=== PATIENT | female | born 1995 | race Caucasian/White ===

== ENCOUNTER 2022-01-25 10:52 | Inpatient (IN) ==
[2022-01-25] MEDS ORDERED: OXYTOCIN 30 UNITS/500 ML BAG IV PRN (11:43)
[2022-01-25 12:35] LABS: Hematocrit (blood only) 42.5 % (37-47); Hemoglobin 14.8 g/dL (12.0-16.0); Mean Corpuscular Hemoglobin 31.3 pg (25-34); Mean Corpuscular Hgb Conc 34.8 g/dL (32-36); Mean Corpuscular Volume 89.9 fL (80-100); Mean Platelet Volume 11.9 fL (7.4-10.4); Platelet Count 179 K/uL (130-400); RDW Standard Deviation 46.6 fL (36.4-46.3); Red Blood Count 4.73 M/uL (4.2-5.4); White Blood Count 10.16 K/uL (4.8-10.8)
--- NOTE | 2022-01-25 12:36 | Anesthesiology Consultation ---
Date of Service January 25, 2022 Assessment & Plan Chart Review Chart Review: Acceptable Risk for Surgery and Patient NOT seen in Pre Admission Testing Consults Requested none ASA ASA2 Proposed Anesthesia Anesthesia Type: Labor Epidural and CSE History Height/Weight Height: 5 ft 5 in Weight: 86.183 kg Allergies Allergy/AdvReac Type Severity Reaction Status Date / Time No Known Allergies Allergy Verified 01/25/22 12:14 Medications Home Medications Medication Instructions Recorded Confirmed Last Taken prenat.vits,rodney,nic-[id number]-[id number] 1 tab PO DAILY 06/07/21 01/25/22 Unknown Past Medical History Medical History 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 Varicella vaccination Exercise / Class Metabolic Activity II 4-5 Yardwork/Stairs/Walk up hill Past Family History Family History Grandfather Diabetes Hypertension Stroke Denies family history of Ovarian cancer Prostate cancer Breast cancer Lung cancer Colorectal cancer Past Surgical History Surgical History No pertinent past surgical history Past Anesthesia History No Hx of Anesthesia Complications and No Family Hx of Anesthesia Complications History of PONV No Hx of PONV and No Hx of Motion Sickness Social History Smoking Status: Never smoker Hx Alcohol Use: No Hx Substance Use: No substance use type: does not use Physical Exam Vital Signs Last Vital Signs Temp 36.9 C 01/25/22 11:11 Pulse 102 H 01/25/22 11:18 Resp 20 01/25/22 11:11 BP 126/84 01/25/22 11:18
--- NOTE | 2022-01-25 13:15 | History & Physical Report ---
Date of Service January 25, 2022 Assessment & Plan (1) PROM (premature rupture of membranes): (2) Velamentous insertion of umbilical cord: Plan: 26 y/o G1 at 40w1d w/ spontaneous rupture of membranes VSS Fetus cat 1 SROM - SVE unchanged from office based on RN's exam, pt will ambulate and re- examine. Consider pit if no progression GBS neg Epidural prn History of Present Illness Chief Complaint: LOF Primary Care Provider: Bessie Rhodes MD 26 y/o G1 at 40 1/7 wga w/ SUZE 01/24 by LMP who presents w/ c/o LOF that began around 10AM. +FM and occ contractions, but nothing pain. Denies VB. 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 Varicella vaccination Surgical History No pertinent past surgical history Family History Grandfather Diabetes Hypertension Stroke Denies family history of Ovarian cancer Prostate cancer Breast cancer Lung cancer Colorectal cancer Social History Smoking Status: Never smoker Second Hand Exposure: No; Hx Alcohol Use: No Hx Substance Use: No Preferred Language: Honduran Outreach Associate Required: No Beliefs That Will Affect Care: None marital status: marital status details: Jadyn Stafford (30) [phone] Current Living Situation: Family Current Living Situation Comment: lives with in laws current occupational status: employed current occupation: [employer] Other Information That Helps Us Care for You: No Feels Safe at Home: Yes Safety Concerns: Feels Safe At This Time caffeine: Yes (coffee) Dental Care, Regularly: Yes Physical Activity Frequency: Does not Exercise Seatbelt Use: always Sunscreen Use: No Assistive Devices: None Physical Exam Genitourinary: OB Exam Abdomen: + vertex and + estimated weight (7) OB Exam Monitor Tracing: + external FHT monitor used, + external uterine monitor used (rare ctx) and + category I (140/mod/+accel/-decel) /-1 by nursing Results & Data ([place]) Vital Signs (Past 12 Hours) Vital Signs Temp Pulse Resp BP 01/25/22 11:18 102 H 126/84 01/25/22 11:11 98.4 F 102 H 20 126/84 Laboratory Results OB Labs: Blood Type O Positive 06/14/21 Antibody Screen NEGATIVE 06/14/21 Hemoglobin 13.1 g/dL (12.0-16.0) 11/04/21 Hematocrit 39.2 % (37-47) 11/04/21 Mean Corpuscular Volume 89.8 fL (80-100) 06/14/21 Platelet Count 210 K/uL (130-400) 06/14/21 Rubella IgG Antibody Immune (Immune) 06/14/21 Rapid Plasma Reagin Nonreactive (Nonreactive) 06/14/21 Hepatitis B Surface Antigen Neg (Neg) 06/14/21 HIV (1&2) Ab and P24 Ag, 4th Gener Neg (Neg) 06/14/21 Glucose 1 Hour 50 gm Load 125 mg/dl (70-130) 11/04/21 Maternal Serum Alpha Fetoprotein 46.5 ng/mL 08/12/21 OB Optional Labs: Chlamydia trachomatis RNA NOT DETECTED (NOT DETECTED) 06/14/21 Neisseria gonorrhoeae RNA NOT DETECTED (NOT DETECTED) 06/14/21 Alpha Fetoprotein Triple Screen SEE NOTE 08/12/21 Labs Reviewed: low risk cfdna neg cf/sma GBS neg Diagnostic Findings 01/01 EFW 70%, post plac Code Status & VTE Plan VTE Prophylaxis Plan VTE Prophylaxis will be ordered: No Coding Level of Care Code None Diagnoses Velamentous insertion of umbilical cord O43.129 PROM (premature rupture of membranes) O42.90
[2022-01-25] MEDS: LACTATED RINGER'S 1,000 ML IV PRN ×3 (14:52→23:00)
[2022-01-25] MEDS ORDERED: AQUAPHOR EXT PRN (14:56)
--- NOTE | 2022-01-25 14:56 | Labor Progress Brief Note ---
Date of Service January 25, 2022 Subjective Comfortable, some ctx Assessment & Plan (1) PROM (premature rupture of membranes): (2) Velamentous insertion of umbilical cord: Plan: 26 y/o G1 at 40w1d w/ spontaneous rupture of membranes VSS Fetus cat 1 SROM - Forebag palpated and ruptured, will have nursing recheck in 1 hr and if still unchanged start pit. Had decel following forebag rupture but recovered well GBS neg Epidural prn Physical Exam Genitourinary: Manual OB Exam: + cervical dilation 4 cm, + cervical effacement 90%, + station -1 and + amniotic fluid (AROM forebag) OB Exam Monitor Tracing: + external FHT monitor used, + external uterine monitor used (rare ctx) and + category I (130/mod/+accel/-decel) Results & Data ([facility]) Vital Signs (Past 12 Hours) Vital Signs Temp Pulse Resp BP 01/25/22 11:18 102 H 126/84 01/25/22 11:11 98.4 F 102 H 20 126/84 Coding Level of Care Code None Diagnoses PROM (premature rupture of membranes) O42.90 Velamentous insertion of umbilical cord O43.129
[2022-01-25] MEDS ORDERED: PETROLATUM 16 OZ JAR EXT PRN (15:10)
[2022-01-25] MEDS ORDERED: EUCERIN CR 120 GM JAR EXT PRN (15:13)
[2022-01-25] MEDS: OXYTOCIN 30 UNITS/500 ML BAG IV PRN (16:33)
[2022-01-25] MEDS ORDERED: ePHEDrine sulfate 50 MG/ML AMP ONE (18:01)
[2022-01-25] MEDS ORDERED: SODIUM CHLORIDE 0.9% INJ 10 ML VIAL ONE (18:02)
[2022-01-25] MEDS ORDERED: fentaNYL 2MCG/ML ROPIVACAINE 1.25MG/ML 100 ML BAG EPI ONE (18:02)
[2022-01-25] MEDS ORDERED: fentaNYL citrate 100 MCG/2 ML VIAL ONE (18:02)
[2022-01-25] MEDS ORDERED: BUPIVACAINE 0.25% 30 ML VIAL ONE (18:02)
[2022-01-25] MEDS ORDERED: fentaNYL 2MCG/ML ROPIVACAINE 1.25MG/ML 100 ML BAG EPI PRN (18:41)
[2022-01-25] MEDS ORDERED: NALOXONE HCL 0.4 MG/1 ML VIAL/CARP IV PRN (18:41)
[2022-01-25] MEDS ORDERED: ePHEDrine sulfate 50 MG/ML AMP IV PRN (18:41)
[2022-01-25] MEDS ORDERED: NALBUPHINE HCL INJ 10 MG/ML AMP IV PRN (18:41)
[2022-01-25] MEDS ORDERED: ONDANSETRON INJ 2 MG/ML 2 ML VIAL IV PRN (18:41)
[2022-01-25] MEDS ORDERED: NALOXONE HCL 1 MG in SODIUM CHLORIDE 0.9% 1000ML 1,000 ML IV PRN (18:41)
[2022-01-25] MEDS ORDERED: diphenhydrAMINE 50 MG/ML VIAL IV PRN (18:41)
--- NOTE | 2022-01-25 18:43 | Anesthesiology Consultation ---
Date of Service January 25, 2022 Assessment & Plan Chart Review Chart Review: Patient NOT seen in Pre Admission Testing and Acceptable Risk for Labor Epidural Consults Requested none ASA ASA2 Proposed Anesthesia Anesthesia Type: Labor Epidural and CSE Risk / Benefits Reviewed With: PT / POA / Parent / Guardian, Accepts Plan and Informed Consent Obtained History Height/Weight Height: 5 ft 5 in Weight: 86.183 kg Allergies Allergy/AdvReac Type Severity Reaction Status Date / Time No Known Allergies Allergy Verified 01/25/22 12:14 Medications Home Medications Medication Instructions Recorded Confirmed Last Taken prenat.vits,rodney,xlo-jzex-[id number] 1 tab PO DAILY 06/07/21 01/25/22 Unknown Active Medications Generic Name Dose Route Start Last Admin Trade Name Freq PRN Reason Stop Dose Admin Lactated Ringer's 1,000 mls @ 125 mls/hr 01/25/22 11:43 01/25/22 18:12 Lr IV 01/27/22 11:42 999 mls/hr .Q8H PRN Administration L&D Protocol Protocol Oxytocin 30 units in 500 mls @ 6 mls/hr 01/25/22 14:51 01/25/22 17:30 Pitocin IV 01/27/22 14:50 0.36 units/hr .Q24H PRN 6 mls/hr Labor Induction/Augmentation Titration Protocol 0.36 UNITS/HR Multi-Ingredient Cream 1 appln 01/25/22 15:13 01/25/22 17:03 Eucerin Cr 120 Gm Jar EXT 02/24/22 15:12 1 appln Q2H PRN Administration Rash NPO Date Last Intake of Fluids: 01/25/22 Time Last Intake of Fluids: 16:00 Date Last Intake of Solids: 01/25/22 Time Last Intake of Solids: 09:00 Past Medical History Medical History 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 Varicella vaccination Exercise / Class Metabolic Activity II 4-5 Yardwork/Stairs/Walk up hill Past Family History Family History Grandfather Diabetes Hypertension Stroke Denies family history of Ovarian cancer Prostate cancer Breast cancer Lung cancer Colorectal cancer Past Surgical History Surgical History No pertinent past surgical history Past Anesthesia History No Hx of Anesthesia Complications and No Family Hx of Anesthesia Complications History of PONV No Hx of PONV and No Hx of Motion Sickness Social History Smoking Status: Never smoker Hx Alcohol Use: No Hx Substance Use: No substance use type: does not use Review of Systems no chest pain or sob Physical Exam Vital Signs Last Vital Signs Temp 36.5 C 01/25/22 17:58 Pulse 77 01/25/22 18:39 Resp 20 01/25/22 17:58 BP 113/68 01/25/22 17:32 Pulse Ox 99 01/25/22 18:39 ENMT Mouth: no TMJ abnormality Thyromental Distance: > or= 3.5 Finger Breadths Mallampati Class: II Neck normal visual inspection Respiratory normal respiratory effort Auscultation: lungs clear to auscultation bilaterally Cardiovascular Rate/Rhythm: regular rate and regular rhythm Musculoskeletal Spine: normal cervical ROM Neurologic moves all extremities Psychiatric Orientation: alert and oriented x 3 Testing Laboratory Results 01/25/22 12:02
--- NOTE | 2022-01-25 19:35 | Labor Progress Brief Note ---
Date of Service January 25, 2022 Subjective Comfortable w/ epidural Assessment & Plan (1) PROM (premature rupture of membranes): (2) Velamentous insertion of umbilical cord: Plan: 26 y/o G1 at 40w1d w/ spontaneous rupture of membranes VSS Fetus cat 1 SROM - pit at 8, continue augmentation GBS neg Epidural in place Admission and Anticipated Discharge Date Admission Date: January 25, 2022 Physical Exam Genitourinary: Manual OB Exam: + cervical dilation (5-6), + cervical effacement 90% and + station -1 OB Exam Monitor Tracing: + external FHT monitor used, + external uterine monitor used (q4) and + category I (140/ mod/+accel/-decel) Results & Data ([facility]) Vital Signs (Past 12 Hours) Vital Signs Temp Pulse Resp BP Pulse Ox 01/25/22 19:29 66 104/58 L 97 01/25/22 19:24 82 96 01/25/22 19:21 70 110/55 L 01/25/22 19:20 97.7 F 20 01/25/22 19:19 90 98 01/25/22 19:14 74 107/61 98 01/25/22 19:09 98 H 98 01/25/22 19:08 82 111/59 L 01/25/22 19:06 83 107/60 01/25/22 19:04 98 H 107/60 98 01/25/22 19:02 85 107/58 L 01/25/22 19:00 96 H 103/64 01/25/22 18:59 95 H 98 01/25/22 18:58 79 95/62 L 01/25/22 18:57 86 111/56 L 01/25/22 18:54 80 100 01/25/22 18:49 69 98 01/25/22 18:44 88 98 01/25/22 18:39 77 99 01/25/22 18:34 78 97 01/25/22 18:29 70 99 01/25/22 17:58 97.7 F 20 01/25/22 17:32 74 113/68 01/25/22 16:04 98.2 F 68 20 121/72 01/25/22 11:18 102 H 126/84 01/25/22 11:11 98.4 F 102 H 20 126/84 Coding Level of Care Code None Diagnoses PROM (premature rupture of membranes) O42.90 Velamentous insertion of umbilical cord O43.129
[2022-01-25] MEDS ORDERED: Nursing to Pharmacy Communication SCH (21:30)
--- NOTE | 2022-01-26 02:30 | Delivery Summary ---
Vaginal Delivery Summary Date of Service January 26, 2022 Vaginal Delivery Summary (L vaginal laceration) PREOPERATIVE DIAGNOSIS: 1. Single intrauterine at 40 2/7 wga 2. Premature rupture of membranes 3. Velamentous cord insertion POSTOPERATIVE DIAGNOSIS: 1. Single intrauterine at 40 2/7 wga 2. Premature rupture of membranes 3. Velamentous cord insertion 4. Delivered PROCEDURE: 1. Normal spontaneous vaginal delivery. SURGEON: Katharina Kirby MD ANESTHESIA: Epidural. ESTIMATED BLOOD LOSS: 400 mL during delivery, ~100ml during pushing FLUIDS: Continuous LR. URINE OUTPUT: Not measured COMPLICATIONS: None. CONDITION: Stable. INDICATIONS: 26 y/o G1 presented with spontaneous rupture of membranes one day ago at around 10AM. She was expectantly managed but did not make progress and so was augmented with pitocin. She received an epidural for pain control and progressed to complete and desired to push. While pushing, there was noted to be bleeding suspected to be a vaginal laceration but could not see it until after delivery. Estimated EBL during pushing was about 100ml. FINDINGS: A viable male infant, weight 3529g with Apgars of 6 and 8 at 1 and 5 minutes respectively. SPECIMEN: Cord blood, cord gases, placenta OPERATIVE REPORT: The patient progressed to 10 cm, 100% effaced and +2 station, pushed over intact perineum with anesthesia to deliver a viable male infant, weight and Apgars as above. Head of delivered in direct OA position and restituted KATHLEEN position. No nuchal cord was present. Body and shoulders were delivered without difficulty. was delivered to maternal abdomen and nursing staff. Delayed cord clamping was performed for 60 seconds. Cord was clamped and cut. Cord blood and gases were obtained. Placenta delivered spontaneously intact with 3-vessel cord with velamentous cord insertion noted. IV oxytocin and fundal massage were given for excellent hemostasis. Vagina, cervix, perineum, and placenta were inspected. A left vaginal laceration was noted and repaired using 3-[address]-1. An area of continued bleeding was made hemostatic with figure of eight stitch. There was excellent hemostasis. Sponge and needle counts correct x2. No sponges were left behind. Mother and stable in immediate period. [facility] Vaginal Delivery Charge Vaginal Delivery Codes: 28623 global code for the antepartum, delivery, and post- Delivery Type Details: (L vaginal laceration)
[2022-01-26 02:33] LABS: Base Excess Cord Venous Blood -4.7 mEq/L (-7.7-1.9); Cord Venous Blood HCO3 19 mmol/L (18.4-26.8); Cord Venous Blood PCO2 32 mmHg (30.4-57.2); Cord Venous Blood PO2 37 mmHg (14.1-43.3); Cord Venous Blood pH 7.39 (7.20-7.44)
[2022-01-26] MEDS: OXYTOCIN 30 UNITS/500 ML BAG IV PRN (02:46)
[2022-01-26] MEDS ORDERED: HYDROCORTISONE ACETATE 25 MG SUPP PR PRN (05:25)
[2022-01-26] MEDS ORDERED: BENZOCAINE 20% AER SPR 82.5 GM CAN EXT PRN (05:25)
[2022-01-26] MEDS ORDERED: bisacodyL 10 MG SUPP PR PRN (05:25)
[2022-01-26] MEDS ORDERED: ACETAMINOPHEN 325 MG TAB PO PRN (05:25)
[2022-01-26] MEDS ORDERED: OXYTOCIN 30 UNITS/500 ML BAG IV PRN (05:25)
[2022-01-26] MEDS ORDERED: DIPHTHERIA/TETANUS/PERTUSSIS 0.5 ML SYR/VIAL IM ONE (05:25)
[2022-01-26] MEDS: DOCUSATE SODIUM 100 MG CAP PO SCH ×2 (08:38→20:28)
[2022-01-26] MEDS: PRENATAL VITAMIN 1 TAB PO SCH (08:38)
[2022-01-26] MEDS: FERROUS SULFATE 325 MG TAB PO SCH (08:39)
[2022-01-26] MEDS ORDERED: NON-FORMULARY MEDICATION (Prenat.Vits,Cal,Min-Iron-Folic tablet) PO SCH (09:00)
--- NOTE | 2022-01-26 09:53 | Anesthesia Procedure Note ---
Date of Service January 26, 2022 Anesthesia Post Epidural Note Vital Signs Vital Signs: Temp Pulse Resp BP Pulse Ox 37.2 C 98 H 20 108/66 96 01/26/22 02:15 01/26/22 04:53 01/26/22 04:17 01/26/22 03:55 01/26/22 04:53 Notes Mental Status: alert / awake / arousable Nausea / Vomiting: adequately controlled Pain: adequately controlled Airway Patency, RR, SpO2: stable & adequate BP & HR: stable & adequate Hydration State: stable & adequate Neuraxial Anesthesia: was administered and sensory block is resolving Anesthetic Complications: no major complications apparent Epidural: Removed without complications and With tip intact
[2022-01-26] MEDS: IBUPROFEN 600 MG TAB PO PRN (20:28)
[2022-01-27 06:10] LABS: Hematocrit (blood only) 31.4 % (37-47); Hemoglobin 10.4 g/dL (12.0-16.0); Mean Corpuscular Hgb Conc 33.1 g/dL (32-36); Mean Corpuscular Volume 90.5 fL (80-100); Mean Platelet Volume 11.3 fL (7.4-10.4); Platelet Count 145 K/uL (130-400); RDW Coefficient of Variation 14.5 % (11.5-14.5); RDW Standard Deviation 47.8 fL (36.4-46.3); Red Blood Count 3.47 M/uL (4.2-5.4); White Blood Count 10.98 K/uL (4.8-10.8)
--- NOTE | 2022-01-27 06:29 | Obstetrical Progress Note ---
Date of Service <Clarence Smith - Last Filed: 01/27/22 07:05> January 27, 2022 Assessment & Plan <lCarence Smith - Last Filed: 01/27/22 07:05> (1) Encounter for care and examination after delivery: 26 yo post day 1 from vaginal delivery, doing well. -Continue routine post care. -vital signs reviewed and WNL. (Tmax 37.2) -Blood type O+, GBS Negative, Rubella Immune -Encourage ambulation, monitor and control pain with Motrin, tylenol PRN, resume regular diet, monitor lochia. -encourage breast feeding. -hemoglobin 10.4 -Discussed discharge with patient. Patient will follow up with Dr. Kirby in 6 weeks. Patient stated she will let us know if she wants to go home today vs tomorrow. <Katharina Kirby MD - Last Filed: 01/27/22 07:14> (1) Encounter for care and examination after delivery: Subjective <Clarence Maradiagamelonieasya - Last Filed: 01/27/22 07:05> Ambulation: ambulating normally Voiding: no voiding problems Passing Gas:: Yes Diet Tolerance:: regular diet Lochia:: Small Feeding Type:: breast feeding Current Pain Level(1-10): 0 Review of Systems Denies fever, chills, sweats Denies shortness of breath, difficulty breathing, chest pain, palpitations, chest pressure. Denies breast pain. Denies dysuria. Denies headache or changes in vision Physical Exam <Clarence Maradiagamelonieasya - Last Filed: 01/27/22 07:05> General: Alert, oriented. No acute distress. Cardiac: Regular rate and rhythm, no murmurs/rubs/gallops. Respiratory: Clear to auscultation bilaterally a/p, no wheezes/rales/rhonchi. No increased work of breathing. Symmetrical chest rise. No respiratory distress. Abdomen: Soft, nontender, nondistended. Bowel sounds present. Uterus: Uterine fundus firm, palpable 1 cm below umbilicus. Lower Extremities: No lower extremity edema or swelling. No deep calf pain. Jeffy's negative bilaterally Results & Data ([facility]) <Clarence Smith DO - Last Filed: 01/27/22 07:05> Vital Signs (Past 12 Hours) Vital Signs Temp Pulse Resp BP BP Pulse Ox 01/27/22 01:41 36.4 C L 78 20 98/67 L 97 01/26/22 20:00 36.7 C 94 H 18 110/75 98 01/26/22 18:40 37 C 96 H 20 91/65 L 98 <Katharina Kirby MD - Last Filed: 01/27/22 07:14> Co-Signing Physician Notes Resident Physician Supervision Note: I interviewed and examined the patient. Discussed with Dr. Smith and agree with findings and plan as documented in the note. Any exceptions or clarifications are listed here: PP1 s/p , doing well. VSS, exam benign and wnl. Meeting all pp milestones. H/H slightly anemic, iron ordered. Unsure if desires d/c today or tomorrow, ok to do so today if desires but they will let us know Documented By: Katharina Kirby MD Resident Activity Tracking <Clarence Smith DO - Last Filed: 01/27/22 07:05> Resident Involvement: Resident Care Provided Care Provided: OB Delivery
[2022-01-27] MEDS: DOCUSATE SODIUM 100 MG CAP PO SCH ×2 (07:57→20:31)
[2022-01-27] MEDS: FERROUS SULFATE 325 MG TAB PO SCH (07:57)
[2022-01-27] MEDS: IBUPROFEN 600 MG TAB PO PRN ×2 (07:57→20:31)
[2022-01-27] MEDS: PRENATAL VITAMIN 1 TAB PO SCH (07:57)
[2022-01-27] MEDS ORDERED: bisacodyL 5 MG TABEC PO SCH (20:00)
--- NOTE | 2022-01-28 06:40 | Obstetrical Progress Note ---
Date of Service <Clarence Smith DO - Last Filed: 01/28/22 08:01> January 28, 2022 Assessment & Plan <Clarence Smith DO - Last Filed: 01/28/22 08:01> (1) Encounter for care and examination after delivery: 26 yo post day 1 from vaginal delivery, doing well. -Continue routine post care. -vital signs reviewed and WNL. (Tmax 37.2) -Blood type O+, GBS Negative, Rubella Immune -Encourage ambulation, monitor and control pain with Motrin, tylenol PRN, resume regular diet, monitor lochia. -encourage breast feeding. -hemoglobin 10.4 -recommended steroid cream and Benadryl for PUPPP rash. -Discussed discharge with patient. Patient will follow up with Dr. Kirby in 6 weeks. <Dk Urias MD - Last Filed: 01/28/22 08:12> (1) Encounter for care and examination after delivery: Subjective <Clarence Smith DO - Last Filed: 01/28/22 08:01> Ambulation: ambulating normally Voiding: no voiding problems Passing Gas:: Yes Diet Tolerance:: regular diet Lochia:: Small Feeding Type:: breast feeding Current Pain Level(1-10): 0 Review of Systems Denies fever, chills, sweats Denies shortness of breath, difficulty breathing, chest pain, palpitations, chest pressure. Denies breast pain. Denies dysuria. Denies headache or changes in vision Physical Exam <Clarence Smith DO - Last Filed: 01/28/22 08:01> General: Alert, oriented. No acute distress. Cardiac: Regular rate and rhythm, no murmurs/rubs/gallops. Respiratory: Clear to auscultation bilaterally a/p, no wheezes/rales/rhonchi. No increased work of breathing. Symmetrical chest rise. No respiratory distress. Abdomen: Soft, nontender, nondistended. Bowel sounds present. Uterus: Uterine fundus firm, palpable 2 cm below umbilicus. Lower Extremities: No lower extremity edema or swelling. No deep calf pain. Jeffy's negative bilaterally skin: erythematous rash across abdomen consistent with PUPPP rash. Results & Data ([facility]) <Clarence Smith DO - Last Filed: 01/28/22 08:01> Vital Signs (Past 12 Hours) Vital Signs Temp Pulse Resp BP Pulse Ox 01/28/22 00:00 36.6 C 81 16 110/71 97 01/27/22 20:25 36.7 C 99 H 16 107/69 99 <Dk Urias MD - Last Filed: 01/28/22 08:12> Co-Signing Physician Notes Patient seen and evaluated and agree with the above findings and plan. Stable for discharge. Resident Activity Tracking <Clarence Smith DO - Last Filed: 01/28/22 08:01> Resident Involvement: Resident Care Provided Care Provided: OB Delivery
[2022-01-28] MEDS ORDERED: HYDROCORTISONE 1% CRM 30 GM TUBE EXT PRN (08:04)
[2022-01-28] MEDS ORDERED: diphenhydrAMINE Capsule 25 MG CAP PO PRN (08:04)
[2022-01-28] MEDS: DOCUSATE SODIUM 100 MG CAP PO SCH (08:51)
[2022-01-28] MEDS: PRENATAL VITAMIN 1 TAB PO SCH (08:51)
[2022-01-28] MEDS: FERROUS SULFATE 325 MG TAB PO SCH (08:51)
== END 2022-01-28 13:20 | disposition home or self-care (01) | DRG 806 ==
LOC: OPB 10:52 → 4S1 10:59 → 4E2 01-26 07:04